=== PATIENT | female | born 1995 | race Caucasian/White ===

== ENCOUNTER 2023-09-03 17:34 | Emergency (ER) | payer OTHER ==
[~2023-09-03] VITALS: Ht 167.6 cm; Wt 77.6 kg
[2023-09-03] MEDS ORDERED: NAPR-1192 PO (19:25)
[2023-09-03] MEDS ORDERED: ONDA4TAB5 PO (19:25)
[2023-09-03 19:37] VITALS: BP 134/62; TEMP 98.7; O2SAT 100
== END 2023-09-03 19:37 | disposition home or self-care (01) ==
LOC: ER 17:43
DX: R51.9 Headache, unspecified (principal); R11.0 Nausea
CPT/HCPCS: 70450-TC